=== PATIENT | male | born 1955 | race Caucasian/White ===

== ENCOUNTER 2017-12-16 14:46 | Emergency (ER) | payer BC ==
[2017-12-16 15:03] VITALS: BP 118/73
[2017-12-16] MEDS ORDERED: Lidocaine 1%* 5 ML VIAL INJ ONE (15:58)
--- NOTE | 2017-12-16 16:05 | UC ---
General HPI - HPI Summary HPI Summary: 1. Patient states that he was poked by a sliver in his left index finger 2 days ago. He was able to remove the sliver he simply pulled it out. He states the sliver came off a pallet. He notes that the site has since become red, swollen and tender. He denies any joint pain or fever or chills. His tetanus is up-to-date within 10 years. 2. There is an unrelated blister to the back of his left hand. He states that he was working on his [employer] and got a small blister after doing so. He notes that the blister has gotten a little bigger. He does not recall injuring or burning the site. He denies any associated pain. He denies any limited use to the hand as result of the blister. - History of Current Complaint Chief Complaint: UCForeignBody Stated Complaint: LEFT INDEX FINGER COMPLAINT Time Seen by Provider: 12/16/17 15:50 Hx Obtained From: Patient Pain Intensity: 5 Associated Signs & Symptoms: Negative: Fever - Allergy/Home Medications Allergies/Adverse Reactions: Allergies Allergy/AdvReac Type Severity Reaction Status Date / Time No Known Allergies Allergy Verified 12/16/17 14:55 PMH/Surg Hx/FS Hx/Imm Hx Endocrine History: Dyslipidemia Cardiovascular History: Hypertension Respiratory History: Asthma - Surgical History Surgical History: Yes Surgery Procedure, Year, and Place: rotator cuff right and left. spinal stenosis low back 2008, [facility]. right knee replacedment--12/2016 - Family History Known Family History: Positive: Hypertension - Social History Lives: With Family Alcohol Use: Daily Alcohol Amount: 1-2 beers a night Substance Use Type: None Smoking Status (MU): Never Smoked Tobacco - Immunization History Most Recent Tetanus Shot: unknown Vaccination Up to Date: Yes Review of Systems Constitutional: Negative Skin: Rash - blister L ahnd and infected finger. Eyes: Negative ENT: Negative Respiratory: Negative Cardiovascular: Negative Gastrointestinal: Negative Genitourinary: Negative Motor: Negative Neurovascular: Negative Musculoskeletal: Negative Neurological: Negative Psychological: Negative Is Patient Immunocompromised?: No All Other Systems Reviewed And Are Negative: Yes Physical Exam Triage Information Reviewed: Yes Appearance: Well-Appearing Vital Signs: Initial Vital Signs Temp 98.3 F 12/16/17 14:57 Pulse 77 12/16/17 14:57 Resp 20 12/16/17 14:57 BP 118/73 12/16/17 14:57 Pulse Ox 96 12/16/17 14:57 Eyes: Positive: Conjunctiva Clear ENT: Positive: Normal ENT inspection Neck: Positive: Supple, Nontender, No Lymphadenopathy Respiratory: Positive: Lungs clear, Normal breath sounds Cardiovascular: Positive: RRR, No Murmur Abdomen Description: Positive: Nontender, No Organomegaly, Soft Bowel Sounds: Positive: Present Musculoskeletal: Positive: ROM Intact Neurological: Positive: Alert Psychological: Positive: Age Appropriate Behavior Skin Exam: Normal, Other - Left hand exam: There is mild erythema and swelling to the proximal nail. The area is slightly fluctuant and consistent with paronychia. The dorsal hand has a 2 cm tense blister without erythema or warmth or tenderness. The hand has full sensorivascular motor function. Procedures - Procedure Summary Procedure Summary: 1. Timeout done. Blister to back of left hand was prepped with Betadine and the tip of an 18-gauge needle with syringe was used to aspirate 1 mL of clear fluid. Skin over the blister was left intact. Site was cleaned with soap and water then covered with bacitracin and a nonocclusive Band-Aid patient tolerated well. Fluid sent for culture 2. Timeout done. Left index prepped with Betadine. Local with 0.4 melts 1% lidocaine. Tip of #11 blade used to make superficial stab incision and small amount of pus spontaneously drained. Additional pus expressed and cultured. Site explored(no FB), irrigated, washed with soap and water, dried. Bacitracin and Band-Aid applied to site. Patient tolerated well No bleeding with procedure 1. Only scant bleeding with procedure to. Sterile technique used for both. And has gross vascular motor and sensation after. Blister was drained because I feel the risk of traumatically tearing off the skin was significant. Course/Dx - Differential Dx - Multi-Symptom Provider Diagnoses: Blister L dorsal hand. Paronychia L index finger. Discharge - Sign-Out/Discharge Documenting (check all that apply): Discharge/Admit/Transfer - Discharge Plan Condition: Improved Disposition: HOME Referrals: Phillip Gaming [Primary Care Provider] - - Billing Disposition and Condition Condition: IMPROVED Disposition: Home
== END 2017-12-16 16:33 | disposition home or self-care (01) ==
LOC: UCCORT 14:46
DX: S60.522A Blister (nonthermal) of left hand, initial encounter (principal); X58.XXXA Exposure to other specified factors, initial encounter; Y93.I9 Activity, other involving external motion; Y92.9 Unspecified place or not applicable; L03.012 Cellulitis of left finger; B95.7 Other staphylococcus as the cause of diseases classified elsewhere; B96.89 Other specified bacterial agents as the cause of diseases classified elsewhere; I10 Essential (primary) hypertension
CPT/HCPCS: 10060; 87070; 87076; 87077; 87186; 87205; 87640; 87641; 99212; G0463